=== PATIENT | female | born 1935 | race Caucasian/White ===

== ENCOUNTER 2016-08-29 14:25 | Emergency (ER) | payer MEDICARE, OTHER ==
[~2016-08-29] VITALS: Ht 160 cm; Wt 91.8 kg
[~2016-08-29 14:25] MED LIST: ASPIRIN 32325 MG/TAB PO; CARDIZEM 30MG T30 MG PO; CARVEDILOL PO; CIPRO 500MG TA500 MG PO; CO Q 10 PO; COREG 25MG25 MG/TAB PO; COREG12.5 MG PO; DETROL LA 2 MG2 MG PO; ELOCON TP; ENABLEX 7.5MG7.5 MG PO; FLAGYL500 MG PO; GLUCOPHAGE500 MG/TAB PO; LANTUS100 U/ML SC; LEVEMIR SQ; LEVEMIR100 U/ML SQ; LIPITOR 10MG10 MG PO; NEURONTIN100 MG/CAP PO; NEURONTIN300 MG/CAP PO; NEXIUM 20MG20 MG PO; NEXIUM 40MG40 MG PO; NORCO 325 MG-7.1 TAB PO; NOVOLOG 100U100 U/M1 SC; NOVOLOG FLEX100 U/ML SC; ORIGANUM OIL 1 M1 ML; PERCOCET 325 MG1 TA2 PO; PRINIVIL20 MG PO; PRISTIQ 50 MG T50 MG PO; PROAIR HFA0.09 MG/AC IH; PROBIOTIC FORMU1 CAP PO; ROXICODONE 55 MG/TAB PO; RT ADVAIR HFA 1112 G IH; SINGULAIR 110 MG/TAB PO; ULTRAM 50MG TAB50 MG PO; VITAMIN B COMPL1 SGL PO; VITAMIN C500 MG PO; VITAMIN D32000 I1 PO; VOLTAREN; VOLTAREN 75 DR75 MG PO
[2016-08-29 14:26] VITALS: BP 120/80; TEMP 97.8
[2016-08-29 16:50] VITALS: PULSE 78
[2016-11-14] MEDS ORDERED: MIRALAX PA17 GM/Dose PO (09:48)
[2016-11-14] MEDS ORDERED: MIRALAX PA17 GM/Dose (09:48)
[2016-11-14] MEDS ORDERED: ALLEGRA ALLERG180 MG PO (09:48)
[2016-11-14] MEDS ORDERED: STOOL SOFTENER100 M2 PO (09:49)
[2016-11-14] MEDS ORDERED: ASPIRIN E.C. 8181 MG PO (09:50)
[2016-11-14] MEDS ORDERED: BENADRYL25 M2 PO (09:52)
[2016-11-14] MEDS ORDERED: MUCINEX DM 60 M1 TER PO (09:53)
[2016-11-14] MEDS ORDERED: BRINTELLIX10 PO (09:53)
== END 2016-08-29 16:55 | disposition home or self-care (01) ==
LOC: COL.ER 14:25
DX: S09.90XA Unspecified injury of head, initial encounter (principal); S93.401A Sprain of unspecified ligament of right ankle, initial encounter; W01.10XA Fall on same level from slipping, tripping and stumbling with subsequent striking against unspecified object, initial encounter; S63.501A Unspecified sprain of right wrist, initial encounter; S13.4XXA Sprain of ligaments of cervical spine, initial encounter; S30.0XXA Contusion of lower back and pelvis, initial encounter; Z91.81 History of falling; Y92.009 Unspecified place in unspecified non-institutional (private) residence as the place of occurrence of the external cause; R26.81 Unsteadiness on feet; E11.9 Type 2 diabetes mellitus without complications; Z79.4 Long term (current) use of insulin

== ENCOUNTER → 2016-10-30 | Outpatient (CLI) | payer MEDICARE, OTHER ==
[~2016-10-30] MED LIST changes: +ALLEGRA ALLERG180 MG PO; +ASPIRIN E.C. 8181 MG PO; +BENADRYL25 M2 PO; +BRINTELLIX10 PO; +MIRALAX PA17 GM/Dose; +MIRALAX PA17 GM/Dose PO; +MUCINEX DM 60 M1 TER PO; +STOOL SOFTENER100 M2 PO
== END ==
LOC: COL.RAD 13:15
DX: R27.0 Ataxia, unspecified (principal)

== ENCOUNTER 2016-12-03 12:33 | Outpatient (CLI) | payer MEDICARE, OTHER ==
[2016-12-03] VITALS (16 sets, daily range): BP systolic 98–124; BP diastolic 55–73; PULSE 63–92
[~2016-12-03] VITALS: Ht 162.6 cm; Wt 90.6 kg
[2016-12-03] MEDS ORDERED: BRINTELLIX10 PO (12:58)
== END 2016-12-03 19:34 | disposition home or self-care (01) ==
LOC: COL.RAD 12:33
DX: C34.91 Malignant neoplasm of unspecified part of right bronchus or lung (principal); E11.9 Type 2 diabetes mellitus without complications; J44.9 Chronic obstructive pulmonary disease, unspecified; J45.909 Unspecified asthma, uncomplicated; I10 Essential (primary) hypertension; E78.00 Pure hypercholesterolemia, unspecified; Z85.3 Personal history of malignant neoplasm of breast; Z87.891 Personal history of nicotine dependence; Z79.899 Other long term (current) drug therapy; Z79.4 Long term (current) use of insulin
CPT/HCPCS: J2250; J3010

== ENCOUNTER 2017-04-20 17:21 | Inpatient (IN) | payer MEDICARE, OTHER ==
[~2017-04-20] VITALS: Ht 160 cm; Wt 90.7 kg
[2017-04-20 18:11] LABS: BASO # 0.1 (0.0-0.2); BASO % 0.6 % (0.0-2.0); EOS # 0.3 (0.0-0.7); EOS % 3.8 % (0-4.0); GRAN # 5.8 (1.4-6.5); GRAN % 64.3 % (42.2-75.2); HEMATOCRIT 39.2 % (37.0-47.0); HEMOGLOBIN 12.9 g/dl (12.5-16.0); LYMPH # 1.4 (1.2-3.4); LYMPH % 15.9 % (20.0-51.0); MEAN CELL VOLUME 89 fl (80.0-100.0); MEAN CORPUSCULAR HEMOGLOBIN 29 pg (27.0-31.0); MEAN CORPUSCULAR HGB CONC 33 g/dl (33.0-37.0); MEAN PLATELET VOLUME 8.9 fl (7.4-10.4); MONO # 1.2 (0.1-0.6); MONO % 13.7 % (1.7-9.3); PLATELET COUNT 261 K/mm3 (130-400); RED BLOOD COUNT 4.41 M/mm3 (4.10-5.30)
[2017-04-20 18:24] LABS: ADJUSTED CALCIUM 9.5 mg/dL (8.4-10.2); ALANINE AMINOTRANSFERASE 91 U/L (9-52); ALBUMIN 3.5 gm/dL (3.5-5.0); ALKALINE PHOSPHATASE 57 U/L (50-136); ANION GAP 9 mmol/L (7-16); BILIRUBIN,TOTAL 0.3 mg/dL (0.0-1.0); BLOOD UREA NITROGEN 20 mg/dL (7-17); CALCIUM 9.1 mg/dL (8.4-10.2); CARBON DIOXIDE 24 mmol/L (22-30); CHLORIDE 92 mmol/L (98-107); GLUCOSE 121 mg/dL (74-106); POTASSIUM 4.8 mmol/L (3.4-5.0); SODIUM 125 mmol/L (137-145); TOTAL PROTEIN 6.6 gm/dL (6.4-8.2)
[2017-04-20 18:35] LABS: TROPONIN-I < 0.012 ng/mL (0.000-0.034)
[2017-04-20 18:49] LABS: COLLECTION METHOD CLEAN CATCH
[2017-04-20 18:57] LABS: PH 6 (5-8); SQUAMOUS EPITHELIAL 0-2 /hpf; URINE APPEARANCE Clear; URINE BACTERIA Rare /hpf; URINE BILIRUBIN Negative (NEGATIVE); URINE BLOOD Negative (NEGATIVE); URINE COLOR Yellow; URINE GLUCOSE Negative (NEGATIVE); URINE KETONE Negative (NEGATIVE); URINE LEUKOCYTE ESTERASE Negative (NEGATIVE); URINE PROTEIN(semi-quant) Negative (NEGATIVE); URINE RBC 0-2 /hpf; URINE UROBILINOGEN Negative (NEGATIVE); URINE WBC 0-2 /hpf
[2017-04-20 21:55] VITALS: BP 129/71; PULSE 91; TEMP 98
[2017-04-20] MEDS ORDERED: COLACE 100100 MG/CAP PO (23:06)
[2017-04-20] MEDS ORDERED: CARDIZEM CD 12120 MG PO (23:16)
[2017-04-20] MEDS ORDERED: ELIQUIS 5MG PO (23:21)
[2017-04-20] MEDS ORDERED: TOPROL XL 50MG50 MG PO (23:22)
[2017-04-20] MEDS ORDERED: TESSALON P100 MG/CAP PO (23:23)
[2017-04-20] MEDS ORDERED: ZOFRAN 4MG T4 MG/TAB PO (23:24)
[2017-04-20] MEDS ORDERED: XOPENEX 0.0.63 MG/3 IH (23:24)
[2017-04-20] MEDS ORDERED: CORDARONE200 MG/TAB PO (23:25)
[2017-04-20] MEDS ORDERED: IRON TABLETS325 MG PO (23:26)
[2017-04-21] VITALS (7 sets, daily range): BP systolic 107–1113; BP diastolic 63–78; PULSE 92–109; TEMP 97.7–98.6
[2017-04-21 06:46] LABS: BASO # 0.1 (0.0-0.2); BASO % 0.7 % (0.0-2.0); EOS # 0.4 (0.0-0.7); EOS % 5.1 % (0-4.0); GRAN % 62.3 % (42.2-75.2); HEMATOCRIT 37.5 % (37.0-47.0); HEMOGLOBIN 12.5 g/dl (12.5-16.0); LYMPH # 1.3 (1.2-3.4); LYMPH % 16.2 % (20.0-51.0); MEAN CELL VOLUME 89 fl (80.0-100.0); MEAN CORPUSCULAR HEMOGLOBIN 30 pg (27.0-31.0); MEAN CORPUSCULAR HGB CONC 33 g/dl (33.0-37.0); MEAN PLATELET VOLUME 9.4 fl (7.4-10.4); MONO # 1.2 (0.1-0.6); MONO % 14.5 % (1.7-9.3); PLATELET COUNT 266 K/mm3 (130-400); RED BLOOD COUNT 4.23 M/mm3 (4.10-5.30)
[2017-04-21 07:02] LABS: ANION GAP 7 mmol/L (7-16); BLOOD UREA NITROGEN 15 mg/dL (7-17); CALCIUM 8.8 mg/dL (8.4-10.2); CARBON DIOXIDE 28 mmol/L (22-30); CHLORIDE 96 mmol/L (98-107); CREATININE, serum 0.72 mg/dL (0.52-1.25); GLUCOSE 92 mg/dL (74-106); SODIUM 131 mmol/L (137-145)
[2017-04-21 13:44] LABS: TROPONIN-I < 0.012 ng/mL (0.000-0.034)
[2017-04-22 02:59] VITALS: BP 133/75; PULSE 97; TEMP 98.3
[2017-04-22 07:00] VITALS: BP 127/76; PULSE 97; TEMP 98.1
[2017-04-22 09:56] LABS: CALCIUM 8.3 mg/dL (8.4-10.2); CREATININE, serum 0.65 mg/dL (0.52-1.25); POTASSIUM 4.5 mmol/L (3.4-5.0)
[2017-04-22 10:48] VITALS: BP 126/65; PULSE 98; TEMP 97.7
[2017-04-22 15:58] VITALS: BP 135/76; PULSE 93; TEMP 98
[2017-04-22 23:02] VITALS: BP 139/72; PULSE 93; TEMP 98.6
[2017-04-23 03:45] VITALS: BP 130/70; PULSE 92
[2017-04-23 07:00] VITALS: BP 149/76; PULSE 101; TEMP 98.2
[2017-04-23] MEDS ORDERED: PREDNISONE10 MG PO (11:15)
[2017-04-25] MEDS ORDERED: DULCOLAX TAB5 MG PO (19:16)
[2017-04-25] MEDS ORDERED: PRISTIQ25 MG PO (19:19)
== END 2017-04-23 13:24 | disposition home or self-care (01) | DRG 640 ==
LOC: COL.ER 17:21 → MEDICAL 20:11
PROVIDERS: Emergency Medicine; Nurse Practitioner; Physician Assistant
DX: E87.1 Hypo-osmolality and hyponatremia (principal); J96.01 Acute respiratory failure with hypoxia; C34.31 Malignant neoplasm of lower lobe, right bronchus or lung; J70.0 Acute pulmonary manifestations due to radiation; I48.91 Unspecified atrial fibrillation; E11.9 Type 2 diabetes mellitus without complications; I10 Essential (primary) hypertension; J44.9 Chronic obstructive pulmonary disease, unspecified; Z85.3 Personal history of malignant neoplasm of breast; Z87.891 Personal history of nicotine dependence; D64.9 Anemia, unspecified; R55 Syncope and collapse
CPT/HCPCS: 99233-AI; 99239; G0378; G8978-GP; G8979-GP; G8987-GO; G8988-GO; J0696; J1200; J1815; J7030; J7050; J7512; Q9967